=== PATIENT | female | born 1980 | race Caucasian/White ===

== ENCOUNTER 2024-05-03 14:55 | Emergency (ER) | payer OTHER, SELFPAY ==
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
--- NOTE | ~2024-05-03 | CT_ITS ---
EXAMINATION: CT chst ab pel thor lum w DATE: 05/03/2024 19:33 INDICATION: TECHNIQUE: Computed tomography (CT) of the chest, abdomen, pelvis, thoracic spine and lumber spine wa s performed with 100 mL Omnipaque-350 intravenous contrast. Automated exposure control and iterative reconstruction technique were employed. The dose-length product was 732.74 mGy-cm. COMPARISON: None FINDINGS: CHEST: 2.6 cm solid appearing thyroid nodule projecting off the inferior isthmus. No thoracic aortic injury. No mediastinal hematoma. No pericardial effusion. No acute lung injury. No pleural effusion or pneumothorax. ABDOMEN/PELVIS: No solid organ injury. No evidence of bowel or mesenteric injury. No free fluid or free air. No retroperitoneal hematoma. Pelvic contents are atraumatic. Simple 1.6 cm left ovarian cyst. MUSCULOSKELETAL (excluding spine): No acute fracture. THORACIC SPINE: No fracture or traumatic malalignment of the thoracic spine. No severe central canal or neural forami nal narrowing. LUMBAR SPINE: No fracture or traumatic malalignment of the lumbar spine. No severe central canal or neural foramina l narrowing. IMPRESSION: No acute process detected in the chest, abdomen, pelvis, thoracic spine, or lumbar spine. 2.6 cm solid appearing thyroid isthmus nodule. Recommend nonemergent, outpatient thyroid ultrasound f or further characterization. Reviewed, dictated and finalized at location K. RACT MANAGEMENT SPECIALIST IMPRESSION: No acute process detected in the chest, abdomen, pelvis, thoracic spine, or lum bar spine. 2.6 cm solid appearing thyroid isthmus nodule. Recommend nonemergent, outpatien t thyroid ultrasound for further characterization.
[2024-05-03 15:03] VITALS: BP 165/78; PULSE 101; RESP 20; TEMP 36.8; O2SAT 100
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
--- NOTE | 2024-05-03 16:43 | ECG_ITS ---
Test Date: 2024-05-03 17:55:01 Measurements Intervals [place] Rate: 115 P: 42 TX: 116 QRS: 43 QRSD: 79 T: 42 QT: 294 QTc: 407 Interpretive Statements SINUS TACHYCARDIA WITH SHORT TX INTERVAL MINIMAL ST DEPRESSION [0.025+ mV ST DEPRESSION] ABNORMAL RHYTHM ECG No previous ECG available for comparison Electronically Signed On 05-04-2024 15:01:24 GLASS MAKER by Niyah De La Cruz M.D.
[2024-05-03 18:47] LABS: BEDSIDEPREGUCG Negative (Negative)
[2024-05-03 19:18] LABS: Estimated CRCL calculation 106 ml/min; Estimated Glomerular Filt Rate > 60
[2024-05-03 19:45] LABS: Add Urine Microscopic? YES; Appearance Urine Clear (Clear); Bacteria Urine None Seen /hpf; Bilirubin Urine Negative (Negative); Blood Urine Negative (Negative); Color Urine Yellow (Yellow); Glucose Urine UA Negative (Negative); Ketones Urine 2+ mg/dL (Negative); Leukocyte Esterase Ur 2+ LEU/UL (Negative); Nitrate Urine Negative (Negative); Non Pathogenic Casts 0-2; Protein Urine Negative (Negative); RBC Urine 0-2 /hpf (0-2); Specific Grav Ur 1.006 (1.001-1.035); Squamous Epithelial Cell Urine None Seen /hpf (Few); Urobilinogen Urine 0.2 mg/dL (<2.0); WBC Urine 21-50 /hpf (0-3); pH Urine 5.5 (5.0-9.0)
[2024-05-03] MEDS: ACETAMINOPHEN 500 MG TABLET 1000 MG PO (19:49)
[2024-05-03] MEDS: CYCLOBENZAPRINE HCL 10 MG TABLET PO (19:49)
--- NOTE | 2024-05-03 19:59 | ECG_ITS ---
Test Date: 2024-05-03 20:21:16 Measurements Intervals [place] Rate: 85 P: 24 DC: 148 QRS: 34 QRSD: 91 T: 32 QT: 338 QTc: 403 Interpretive Statements SINUS RHYTHM Compared to ECG 05/03/2024 17:55:01 Sinus tachycardia no longer present Short DC interval no longer present ST (T wave) deviation no longer present Electronically Signed On 05-04-2024 14:57:32 SUPERVISOR WET END by Niyah De La Cruz M.D.
[2024-05-03 21:13] VITALS: BP 132/72; PULSE 80; RESP 18; O2SAT 99
== END 2024-05-03 21:15 | disposition home or self-care (01) ==
PROVIDERS: Registered Nurse; Emergency Provider Physician Assistant
DX: S70.11XA Contusion of right thigh, initial encounter (principal); V49.50XA Passenger injured in collision with unspecified motor vehicles in traffic accident, initial encounter; E04.1 Nontoxic single thyroid nodule
CPT/HCPCS: 70450; 71260; 72125; 72129; 72132; 73552; 74177; 81001; 81025; 87086; 93005; 99284; A9270; Q9967